=== PATIENT | male | born 1945 | race Caucasian/White ===

== ENCOUNTER 2016-11-02 05:07 | Day surgery (SDC) | payer MEDICARE, OTHER ==
--- NOTE | ~2016-11-02 | EGD ---
EGD REPORT [facility] [address] [place] [place] [address] NAME: DANILO MACEDO : [birth year] STATUS : REG [facility]#: [id number] AGE: 71 ADM/REG DATE : 11/02/16 MR#: [id number] REPORT SERV DATE: 11/02/16 DICTATED BY: ZAINA EWING DATE: 11/02/16 REPORT STATUS : Draft TRANSCRIBED BY: [employer] DATE: 11/02/16 [facility] Patient Name: Danilo Macedo Date of : 1945 Attending MD: ZAINA EWING, Procedure Date No Time: 11/02/2016 Procedure: Colonoscopy Indications: High risk colon cancer surveillance: Personal history of colonic polyps Referring MD: GÓMEZ MALAGON Medicines: Monitored Anesthesia Care Complications: No immediate complications. Estimated blood loss: None. Procedure: Pre-Anesthesia Assessment: - ASA Grade Assessment: II - A patient with mild systemic disease. After I obtained informed consent, the scope was passed under direct vision. Throughout the procedure, the patient's blood pressure, pulse, and oxygen saturations were monitored continuously. The CF [id number] was introduced through the anus and advanced to the cecum, identified by appendiceal orifice and ileocecal valve. The colonoscopy was performed without difficulty. The patient tolerated the procedure well. The quality of the bowel preparation was good. Findings: The perianal and digital rectal examinations were normal. There was evidence of a prior [id number] ileo-colonic anastomosis at the hepatic flexure. This was patent. This was characterized by healthy appearing mucosa. A few small-mouthed diverticula were found in the sigmoid colon. Internal hemorrhoids were found during retroflexion and were Grade II (internal hemorrhoids that prolapse but reduce spontaneously). Three sessile polyps were found in the rectum. The polyps were 1 to 2 mm in size. These polyps were removed with a cold biopsy forceps. Resection and retrieval were complete. Verification of patient identification for the specimen was done. Estimated blood loss was minimal. The exam was otherwise without abnormality on direct and retroflexion views. Impression: - Patent [id number] ileo-colonic anastomosis. - Diverticulosis in the sigmoid colon. - Internal hemorrhoids. - Three 1 to 2 mm polyps in the rectum. Resected and retrieved. EGD REPORT [place] [id number] [place]. [address] NAME: DANILO MACEDO : [birth year] STATUS : REG [facility]#: [id number] AGE: 71 ADM/REG DATE : 11/02/16 MR#: [id number] REPORT SERV DATE: 11/02/16 DICTATED BY: ZAINA EWING DATE: 11/02/16 REPORT STATUS : Draft TRANSCRIBED BY: [employer] DATE: 11/02/16 - The examination was otherwise normal on direct and retroflexion views. Recommendation: - Patient has a contact number available for emergencies. The signs and symptoms of potential delayed complications were discussed with the patient. Return to normal activities tomorrow. Written discharge instructions were provided to the patient. - Return to previous diet. - Continue present medications. - Await pathology results. - Repeat colonoscopy for surveillance based on pathology results. - Return to GI clinic in 6 weeks. Procedure Code(s): --- Professional --- 21909, Colonoscopy, flexible, proximal to splenic flexure; with biopsy, single or multiple Diagnosis Code(s): --- Professional --- Z98.0, Intestinal bypass and anastomosis status K64.1, Second degree hemorrhoids K57.30, Diverticulosis of large intestine without perforation or abscess without bleeding K62.1, Rectal polyp Z86.010, Personal history of colonic polyps CPT copyright 2013 [employer]. All rights reserved. The codes documented in this report are preliminary and upon certified medical coder review may be revised to meet current compliance requirements. ZAINA EWING, 11/02/2016 7:27 AM Number of Addenda: 0 Note Initiated On: 11/02/2016 7:06 AM Scope Withdrawal Time 0 hours 10 minutes 40 seconds [id number] [place] [id number]
[~2016-11-02 05:07] MED LIST: *DENIES; ALEVE220 MG PO; CIP5 PO; FLOMAX4 PO; NORCO1 TA1 PO; PCET PO; PR25 PO; [UNRECOGNIZED DRUG - REMARK]
== END 2016-11-02 23:59 | disposition home or self-care (01) ==
LOC: DMU 05:07
PROVIDERS: Internal Medicine Gastroenterology
PROC: 0DBP8ZZ Excision of Rectum, Via Natural or Artificial Opening Endoscopic (ICD-10-PCS; principal; 2016-11-02 07:00)
DX: Z12.11 Encounter for screening for malignant neoplasm of colon (principal); K62.1 Rectal polyp; K64.1 Second degree hemorrhoids; K21.9 Gastro-esophageal reflux disease without esophagitis; K57.30 Diverticulosis of large intestine without perforation or abscess without bleeding; Z98.0 Intestinal bypass and anastomosis status; Z86.010 Personal history of colon polyps; Z85.46 Personal history of malignant neoplasm of prostate; Z90.49 Acquired absence of other specified parts of digestive tract; Z98.890 Other specified postprocedural states; Z97.2 Presence of dental prosthetic device (complete) (partial); Z87.442 Personal history of urinary calculi; Z90.79 Acquired absence of other genital organ(s)
CPT/HCPCS: 88305